=== PATIENT | male | born 1995 | race American Indian/Alaskan Native ===

== ENCOUNTER 2020-09-24 18:33 | Emergency (ER) | payer SELFPAY ==
[2020-09-24] MEDS ORDERED: cephALEXin 500 MG CAP PO ONE (19:26)
[2020-09-24] MEDS ORDERED: DIPHtheria,PERTUSSIS(ACELL),TETANUS VACCINE/PF 0.5 ML VIAL IM ONE (19:26)
[2020-09-24] MEDS ORDERED: traMADol 50 MG TAB PO ONE (19:27)
[2020-09-24 19:31] VITALS: BP 117/61
--- NOTE | 2020-09-24 19:32 | Emergency Department Report ---
Upper Extremity - HPI Stated Complaint: RT HAND INJURY Time Seen by Provider: 09/24/20 19:29 Upper Extremity: Right Hand (right hand laceration ) Occurred When: Today Mechanism: Other (versus glass /mirror ) Severity: moderate Symptoms: Yes Pain with Movement, Yes Laceration or Abrasion (skin avulsion right dorsal hand ), No Deformity, No Limited Range of Movement, No Numbness, No Weakness, No Swelling, No Bruising/Ecchymosis Other History: Patient 25-year-old male states he hit his hand on mirror in his car causing laceration to posterior right hand. Bleeding controlled via direct pressure self applied, last tetanus shot unknown. Pain is 4/10 exacerbated by movement. There is no deformity no active bleeding at this time patient denies numbness or tingling. ED Review of Systems ROS: Stated complaint: RT HAND INJURY Other details as noted in HPI Constitutional: denies: chills, fever Eyes: denies: eye pain, eye discharge, vision change ENT: denies: ear pain, throat pain Respiratory: denies: cough, shortness of breath, wheezing Cardiovascular: denies: chest pain, palpitations Endocrine: no symptoms reported Gastrointestinal: denies: abdominal pain, nausea, diarrhea Genitourinary: denies: urgency, dysuria Musculoskeletal: other (laceration hand ) Skin: other (laceration as above ). denies: rash, lesions Neurological: as per HPI Psychiatric: denies: anxiety, depression Hematological/Lymphatic: denies: easy bleeding, easy bruising ED Past Medical Hx - Social History Smoking Status: Current Every Day Smoker Substance Use Type: None - Medications Home Medications: Home Medications Medication Instructions Recorded Confirmed Last Taken Type Ibuprofen [Motrin 800 MG tab] 800 mg PO Q8H PRN #20 tablet 02/09/15 Unknown Rx cephALEXin [Keflex] 500 mg PO Q6H #12 capsule 02/09/15 Unknown Rx cephALEXin [Keflex] 500 mg PO Q8HR 7 Days #21 cap 09/24/20 Unknown Rx traMADoL [Ultram] 50 mg PO Q6HR PRN #12 tablet 09/24/20 Unknown Rx Upper Extremity Exam - Exam General: Vital signs noted. No distress. Alert and acting appropriately. Head and Torso: No HEENT Abnormality, No Neck Tenderness, No Chest/Lungs Abnormality, No Abdominal Tenderness, No Back Tenderness Shoulder Exam: Yes Normal Range of Motion in Shoulder, No Shoulder Tenderness, No Clavicle Tenderness, No Shoulder Deformity, No AC Joint Tenderness Arm Exam: No Arm/Humerus Tenderness, No Arm Deformity Elbow: No Elbow Tenderness, No Normal Range of Motion in Elbow, No Elbow Defor mity Forearm: No Forearm Tenderness, No Forearm Deformity, No Pain with Pronation, No Pain with Supination Wrist: Yes Normal ROM in Wrist, No Wrist Tenderness, No Wrist Deformity, No Snuffbox Tenderness, No Pain with Axial Thumb Compression Hand: Yes Hand Tenderness, Yes Normal ROM in Digit(s), No Hand Deformity, No Digit Tenderness, No Digit(s) Deformity, No Tendon Dysfunction CMS Exam: Yes Broken Skin (right hand laceration /skin avulsion 1 cm ), Yes Normal Distal Pulses, Yes Normal Capillary Refill, Yes Normal Distal Sensation - Laceration /Wound Repair Right Dorsal Hand Wound Location: upper extremity (Right dorsal hand right knuckle skin avulsion partial 1 cm. ) Wound Length (cm): 1 Wound's Depth, Shape: superficial Wound Explored: clean Irrigated w/ Saline (ccs): 20 Betadine Prep?: Yes Anesthesia: 1% Lidocaine Volume Anesthetic (ccs): 1 Wound Debrided: minimal Wound Repaired With: sutures Suture Size/Type: 3:0, proline Number of Sutures: 3 Layer Closure?: No Sterile Dressing Applied?: Yes Progress: Right dorsal hand skin tear partial skin avulsion , approximately 1 cm no nerve tendon or muscle damage. Site clean Betadine solution. Anesthesia with 1 cc 1% lidocaine plain wound irrigated 20 cc sterile saline, wound closed with 3.0 Prolene times 3 sutures ,Interrupted. All bleeders controlled, sterile dressing applied, CMS remains intact. [employer] less than 3 seconds bilateral range of motion intact flexion extension intact to direct apposition. Given discharge inst ructions verbalized understanding of same will follow with PCP in 2 to 3 days for wound check 7 to 10 days for suture removal. ED Medical Decision Making - Medical Decision Making Right dorsal hand laceration see laceration repair note. Patient DC'd home with prescriptions patient tolerated procedure with minimal distress for follow-up PCP in 2 to 3 days for wound check. Critical care attestation.: If time is entered above; I have spent that time in minutes in the direct care of this critically ill patient, excluding procedure time. ED Disposition Clinical Impression: Laceration of hand Qualifiers: Encounter type: initial encounter Foreign body presence: without foreign body Laterality: right Qualified Code(s): S61.411A - Laceration without foreign body of right hand, initial encounter Disposition: TO HOME OR SELFCARE Is pt being admited?: No Does the pt Need Aspirin: No Condition: Stable Instructions: Laceration Care, Adult Prescriptions: cephALEXin [Keflex] 500 mg PO Q8HR 7 Days #21 cap traMADoL [Ultram] 50 mg PO Q6HR PRN #12 tablet PRN Reason: Pain Referrals: [facility] [Provider Group] - 3-5 Days Forms: Work/School Release Form(ED) Time of Disposition: 20:19
--- NOTE | 2020-09-24 19:53 | XRay Report ---
RIGHT HAND 2 VIEWS INDICATION / CLINICAL INFORMATION: hand laceration COMPARISON: None available. FINDINGS: BONES / JOINT(S): No acute fracture or subluxation. No significant arthritis. SOFT TISSUES: No radiopaque foreign body. ADDITIONAL FINDINGS: None. Signer Name: Alex Gardner MD Signed: 09/24/2020 7:48 PM Workstation Name: [id number]
== END 2020-09-24 21:01 | disposition home or self-care (01) ==
LOC: ED 18:33
DX: S61.411A Laceration without foreign body of right hand, initial encounter (principal); F17.200 Nicotine dependence, unspecified, uncomplicated; Z79.899 Other long term (current) drug therapy; W25.XXXA Contact with sharp glass, initial encounter; Y93.89 Activity, other specified; Y92.89 Other specified places as the place of occurrence of the external cause; Y99.8 Other external cause status
CPT/HCPCS: 90471; 90715; 99283